=== PATIENT | female | born 1935 | race African-American/Black ===

== ENCOUNTER 2016-07-15 12:02 | Emergency (ER) | payer MEDICARE, BC ==
[~2016-07-15 12:02] MED LIST: ALBU8.5H6 IH; ASPI81TA2 PO; BUSP15TA PO; CETI10TA30 PO; CETI5SOL PO; DIAZ5TAB PO; DICL1TAB50 PO; FAMO-63 PO; FLUT16SP2 NS; LISI40TA PO; LORA0.5P MC; METH500T7 PO; OMEG300C PO; PANT40TA3 PO; PROAIR HFA8.5 GM IH; VENL37.5 PO
[2016-07-15 12:59] VITALS: BP 148/67
--- NOTE | 2016-07-15 13:59 | RAD ---
2 view CXR: Clinical indications: Cough and congestion.. Comparison: January 23, 2016. 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 No acute lung infiltrate or pleural effusion or pulmonary edema or lung mass or pneumothorax is seen. The heart size is at the upper limits of normal in size and is stable. The pulmonary vasculature, mediastinum and both karie are unremarkable. The osseous structures appear intact. Impression: No acute radiographic abnormality is seen.
[2016-07-15] MEDS ORDERED: DOXY100T PO (14:30)
[2016-07-15] MEDS ORDERED: PROAIR RESPICL90 MCG IH (14:30)
[2016-07-15] MEDS ORDERED: BENZ100C PO (14:30)
--- NOTE | 2016-07-15 14:30 | PHYS DOC ---
Past Medical History Past Medical History: Anxiety, Kidney Stone Additional Past Medical Histor: seasonal allergies, ACID REFLUX Past Surgical History: Other Additional Past Surgical Histo: back surgery, Alcohol Use: None Drug Use: None Adult General Chief Complaint Chief Complaint: COUGH HPI HPI Patient is a 81 year old female with history of kidney stones and anxiety presents today with a productive cough and nasal congestion for 2 days. Patient denies any fever. Patient states she would like antibiotics before this cough gets worse. Review of Systems Review of Systems Constitutional: Denies fever or chills [] Eyes: Denies change in visual acuity, redness, or eye pain [] HENT: nasal congestion Respiratory: cough Cardiovascular: No additional information not addressed in HPI [] GI: Denies abdominal pain, nausea, vomiting, bloody stools or diarrhea [] : Denies dysuria or hematuria [] Musculoskeletal: Denies back pain or joint pain [] Integument: Denies rash or skin lesions [] Neurologic: Denies headache, focal weakness or sensory changes [] Endocrine: Denies polyuria or polydipsia [] Allergies Allergies Allergies Coded Allergies Type Severity Reaction Last Updated Verified Sulfa (Sulfonamide Antibiotics) Allergy Severe Rash 01/23/16 Yes promethazine Allergy Severe Vomiting 01/23/16 Yes Penicillins Allergy Intermediate 01/23/16 Yes Physical Exam Physical Exam Constitutional: Well developed, well nourished, no acute distress, non-toxic appearance. [] HENT: Normocephalic, atraumatic, bilateral external ears normal, oropharynx moist, no oral exudates, nose normal. [] Eyes: PERRLA, EOMI, conjunctiva normal, no discharge. [] Neck: Normal range of motion, no tenderness, supple, no stridor. [] Cardiovascular:Heart rate regular rhythm, no murmur [] Lungs & Thorax: Bilateral breath sounds clear to auscultation [] Abdomen: Bowel sounds normal, soft, no tenderness, no masses, no pulsatile masses. [] Skin: Warm, dry, no erythema, no rash. [] Back: No tenderness, no CVA tenderness. [] Extremities: No tenderness, no cyanosis, no clubbing, ROM intact, no edema. [] Neurologic: Alert and oriented X 3, normal motor function, normal sensory function, no focal deficits noted. [] Psychologic: Affect normal, judgement normal, mood normal. [] Current Patient Data Vital Signs Vital Signs Date Time Temp Pulse Resp B/P Pulse Ox O2 Delivery O2 Flow Rate FiO2 07/15/16 12:59 98.1 62 16 99 Room Air 98.1 EKG EKG [] Radiology/Procedures Radiology/Procedures [] Course & Med Decision Making Course & Med Decision Making Pertinent Labs and Imaging studies reviewed. (See chart for details) Patient is in the ED with a productive cough and nasal congestion for 2 days. Chest x-ray interpreted by radiologist is negative for any acute findings. She is 81 years old and is very concerned she could get pneumonia from this cough in a couple days. She was discharged with doxycycline for 7 days, albuterol breathing treatments and Tessalon Perles. Follow-up with her own PCP in the next 7 days. Instructed to return to the ED if symptoms worsen. Dragon Disclaimer Dragon Disclaimer This electronic medical record was generated, in whole or in part, using a voice recognition dictation system. Departure Departure Impression: Primary Impression: Bronchitis, acute Disposition: 01 HOME, SELF-CARE Condition: STABLE Referrals: SHUBHAM MO MD (PCP) Follow-up with your own doctor in one week Patient Instructions: Acute Bronchitis Additional Instructions: You were seen for acute bronchitis and upper respiratory infection. Take the prescribed antibiotics until finished. Use the cough medicines as needed. Follow -up with your own doctor in the next 7 days, come back to the ED if symptoms worsen. Scripts Doxycycline Hyclate 100 Mg Tablet1 Tab PO BID #14 TAB Prov:DAVON TAYLOR APRN 07/15/16 Benzonatate (Tessalon Perle)100 Mg Capsule1 Cap PO TID #30 CAP Prov:DAVON TAYLOR APRN 07/15/16 Albuterol Sulfate (Proair Respiclick)90 Mcg Aer.pow.ba1 Puff IH PRN Q6HRS PRN SHORTNESS OF BREATH #1 INHALER Prov:DAVON TAYLOR APRN 07/15/16 Problem Qualifiers Primary Impression: Bronchitis, acute Bronchitis organism: unspecified organism Qualified Code: J20.9 - Acute bronchitis, unspecified DAVON TAYLOR APRN Jul 15, 2016 14:30
== END 2016-07-15 14:58 | disposition home or self-care (01) ==
LOC: ER 12:02
DX: J20.9 Acute bronchitis, unspecified (principal); F41.9 Anxiety disorder, unspecified; Z88.2 Allergy status to sulfonamides; Z88.0 Allergy status to penicillin; Z88.8 Allergy status to other drugs, medicaments and biological substances
CPT/HCPCS: 71020; 99284

== ENCOUNTER 2016-12-25 12:54 | Emergency (ER) | payer MEDICARE, BC ==
[~2016-12-25] VITALS: Ht 160 cm; Wt 85.3 kg
[~2016-12-25 12:54] MED LIST changes: +ASPI-630 PO; -ASPI81TA2 PO; +BENZ100C PO; +DOXY100T PO; +PROAIR RESPICL90 MCG IH
[2016-12-25 13:00] VITALS: BP 164/67
--- NOTE | 2016-12-25 13:07 | PHYS DOC ---
Past Medical History Past Medical History: Anxiety, Kidney Stone Additional Past Medical Histor: seasonal allergies, ACID REFLUX Past Surgical History: Other Additional Past Surgical Histo: back surgery, Alcohol Use: None Drug Use: None Adult General Chief Complaint Chief Complaint: ANKLE PROBLEM [facility] HPI Patient is a 81 year old female presents to the emergency department c/o pain to the right medial heel that started 2 days ago. Patient states she had irritation to the area and then had sandals that irritated the area. Patient states there is redness noted to site. She has increase pain to the area. Denies numbness, tingling to the area. She does walk with a limp. [] Review of Systems Review of Systems Constitutional: Denies fever or chills [] Eyes: Denies change in visual acuity, redness, or eye pain [] HENT: Denies nasal congestion or sore throat [] Respiratory: Denies cough or shortness of breath [] Cardiovascular: No additional information not addressed in HPI [] GI: Denies abdominal pain, nausea, vomiting, bloody stools or diarrhea [] : Denies dysuria or hematuria [] Musculoskeletal: Denies back pain. C/o right heel/achilles pain and discomfort Integument: Denies rash or skin lesions [] Neurologic: Denies headache, focal weakness or sensory changes [] Endocrine: Denies polyuria or polydipsia [] Allergies Allergies Allergies Coded Allergies Type Severity Reaction Last Updated Verified Sulfa (Sulfonamide Antibiotics) Allergy Severe Rash 01/23/16 Yes promethazine Allergy Severe Vomiting 01/23/16 Yes Penicillins Allergy Intermediate 01/23/16 Yes Physical Exam Physical Exam Constitutional: Well developed, well nourished, no acute distress, non-toxic appearance. [] HENT: Normocephalic, atraumatic, bilateral external ears normal, oropharynx moist, no oral exudates, nose normal. [] Eyes: PERRLA, EOMI, conjunctiva normal, no discharge. [] Neck: Normal range of motion, no tenderness, supple, no stridor. [] Cardiovascular:Heart rate regular rhythm Lungs & Thorax: no respiratory distress noted. Skin: Warm, dry, no erythema, no rash. [] Back: No tenderness Extremities: No tenderness, no cyanosis, no clubbing, ROM intact, no edema. Rowe test negative for the right Neurologic: Alert and oriented X 3, normal motor function, normal sensory function, no focal deficits noted. [] Psychologic: Affect normal, judgement normal, mood normal. [] Current Patient Data Vital Signs Vital Signs Date Time Temp Pulse Resp B/P (MAP) Pulse Ox O2 Delivery O2 Flow Rate FiO2 12/25/16 13:00 98.3 67 14 99 Room Air 98.3 EKG EKG [] Radiology/Procedures Radiology/Procedures [][facility] [address] [place] [address] IMAGING REPORT Signed PATIENT: MEGAN LUKE ACCOUNT: [id number] : 1935 LOCATION: ER AGE: 81 SEX: F EXAM STATUS: REG ER ORD. PHYSICIAN: RACHELE NELSON APRN REASON: pain and redness to the medial ankle/achilles area PROCEDURE: ANKLE RIGHT 3V Three-view right ankle radiographs 12/25/2016 Clinical history: Right ankle pain and redness. AP, lateral and oblique digital radiographs of the right ankle were obtained. The right ankle mortise is intact. No fracture or dislocation of the right ankle is seen. Mild degenerative changes are seen involving the right ankle. Mild enthesophyte formation is seen involving the posterior right calcaneus. Impression: Mild degenerative changes are seen involving the right ankle. No acute osseous abnormality is seen. DICTATED and SIGNED BY: JEVON BOLDEN MD DATE: 12/25/16 1336 CC: RACHELE NELSON APRN; SHUBHAM MO MD ~ Course & Med Decision Making Course & Med Decision Making Pertinent Labs and Imaging studies reviewed. (See chart for details) X-ray was negative for any bony abnormalities. Patient will be placed in an Bryan wrap. Recommended to followup with orthopedic in 1 week. Wear the bryan wrap for the next 7-10 days. Elevation as much as possible. Tylenol or Ibuprofen for pain and discomfort. Signs and symptoms to return to the emergency department have been provided. Patient agrees with discharge instructions, treatment regimen and followup recommendation. [] Dragon Disclaimer Dragon Disclaimer This electronic medical record was generated, in whole or in part, using a voice recognition dictation system. Departure Departure Impression: Primary Impression: Pain of right heel Disposition: 01 HOME, SELF-CARE Condition: STABLE Referrals: SHUBHAM MO MD (PCP) SAURAV SANTOS MD Patient Instructions: Ankle Pain Additional Instructions: Activity as tolerated. Tylenol or ibuprofen and discomfort. Wear the Bryan wrap for the next 7-10 days. Elevation as much as possible. Follow-up with orthopedic in the next week. Return back to emergency department sign symptoms of become worse. RACHELE NELSON APRN Dec 25, 2016 13:07
--- NOTE | 2016-12-25 13:40 | RAD ---
Three-view right ankle radiographs 12/25/2016 Clinical history: Right ankle pain and redness. AP, lateral and oblique digital radiographs of the right ankle were obtained. The right ankle mortise is intact. No fracture or dislocation of the right ankle is seen. Mild degenerative changes are seen involving the right ankle. Mild enthesophyte formation is seen involving the posterior right calcaneus. Impression: Mild degenerative changes are seen involving the right ankle. No acute osseous abnormality is seen.
== END 2016-12-25 14:20 | disposition home or self-care (01) ==
LOC: ER 12:54
DX: M25.571 Pain in right ankle and joints of right foot (principal); F41.9 Anxiety disorder, unspecified; K21.9 Gastro-esophageal reflux disease without esophagitis; Z87.442 Personal history of urinary calculi; Z88.2 Allergy status to sulfonamides; Z88.0 Allergy status to penicillin; Z88.8 Allergy status to other drugs, medicaments and biological substances
CPT/HCPCS: 73610; 99284

== ENCOUNTER 2017-01-06 12:12 | Observation (INO) | payer MEDICARE, BC ==
[~2017-01-06] VITALS: Ht 160 cm; Wt 81.3 kg
[~2017-01-06 12:12] MED LIST changes: +AMLO10TA4 PO; +METO25TA4 PO; +TICA90TA PO
[2017-01-06] MEDS ORDERED: NITROGLYCERIN SUBLINGUAL 0.4 MG BOTTLE OF 25. SL ONE (12:32)
[2017-01-06] MEDS ORDERED: ASPIRIN CHEWABLE 81 MG TABLET. PO ONE (12:45)
[2017-01-06] MEDS ORDERED: NITROGLYCERIN SUBLINGUAL 0.4 MG BOTTLE OF 25. SL PRN (12:45)
[2017-01-06] MEDS ORDERED: TICAGRELOR 90 MG TABLET. PO ONE (12:45)
[2017-01-06 13:13] LABS: BASO % 1 % (0-3); EOS % 1 % (0-3); HEMATOCRIT 35.7 % (36.0-47.0); HEMOGLOBIN 11.5 g/dL (12.0-15.5); LYMPH # 1.8 x10^3/uL (1.0-4.8); LYMPH % 30 % (24-48); MEAN CORPUSCULAR HEMOGLOBIN 29 pg (25-35); MEAN CORPUSCULAR HGB CONC 32 g/dL (31-37); MEAN CORPUSCULAR VOLUME 90 fL (79-100); MONO % 9 % (0-9); NEUT % 58 % (31-73); PLATELET COUNT 248 x10^3/uL (140-400); RED BLOOD COUNT 3.98 x10^6/uL (3.50-5.40); WHITE BLOOD COUNT 5.8 x10^3/uL (4.0-11.0)
[2017-01-06 13:14] LABS: CALCIUM 9.1 mg/dL (8.5-10.1); GFR 64.7
[2017-01-06 13:18] LABS: ALBUMIN 3.1 g/dL (3.4-5.0); ALBUMIN/GLOBULIN RATIO 0.7 (1.0-1.7); TOTAL BILIRUBIN 0.3 mg/dL (0.2-1.0); TOTAL PROTEIN 7.4 g/dL (6.4-8.2)
--- NOTE | 2017-01-06 13:41 | RAD ---
Indication: Chest pain. Time of exam 12:42 PM Correlation is made with prior chest from 01/02/2017. FINDINGS: The heart size is normal. The lungs are clear. No pleural effusion or pneumothorax is identified. The pulmonary vascularity is normal. IMPRESSION: No acute abnormality detected.
--- NOTE | 2017-01-06 14:27 | ACF ---
Admit Criteria Forms Admit Criteria Forms Admit Criteria Forms CHEST PAIN Clinical Indications for Admission to Inpatient Care (Place 'X' for any and all applicable criteria): Admission is indicated for chest pain and ANY ONE of the following(1)(2)(3)(4)(5 ): [ ]I. Angina with acute coronary syndrome (Also use Myocardial Infarction or Angina guideline) [ ]II. Hemodynamic instability [ ]III. Angina needing acute intervention as indicated by ALL of the following( 11)(12): [ ]a) Unstable angina is present as indicated by angina that is ANY ONE of the following: [ ]i) New onset [ ]ii) Nocturnal [ ]iii) Prolonged at rest [ ]iv) Progressive [ ]b) Angina warrants acute intervention as indicated by ANY ONE of the following: [ ]i) Recurrent angina (e.g, not responding as previously to treatment) [ ]ii) Angina at rest or with low-level activities despite initial medical therapy [ ]iii) New or presumably new ST-segment depression on ECG [ ]iv) Signs or symptoms of heart failure (eg, dyspnea, pulmonary edema) [ ]v) New or worsening mitral regurgitation [ ]vi) Hemodynamic instability [ ]vii) Dangerous arrhythmia (eg, sustained ventricular tachycardia) [ ]viii) History of percutaneous coronary intervention within 6 months [ ]ix) History of coronary artery bypass graft surgery [ ]x) MARBELLA risk score of 2 or greater[A] [ ]xi) History of Diabetes(14) [ ]xii) High-risk cardiac ischemia findings on noninvasive testing (e.g, echocardiogram, treadmill testing, nuclear scan) [ ]xiii) Chronic renal insufficiency (ie, estimated GFR less than 60 mL/min/1.732m) [ ]xiv) Left ventricular ejection fraction less than 40% [X]IV. Evidence of UT (eg, cardiac biomarkers positive, ST-segment elevation on ECG) also use Myocardial Infarction Criteria Form. [ ]V. Pulmonary edema [ ]. Respiratory distress [ ]VII. Chest pain indicative of serious diagnosis other than coronary artery disease (eg, aortic dissection) [ ]VIII. Contraindications and/or Inappropriate clinical situations for Observational Care in patients with Chest Pain, when ANY ONE of the following is required: [ ]a) Patient with risk factor for pulmonary embolism, acute coronary syndrome and myocardial infarction (18) [ ]b) Patient with Pulmonary embolism require an average LOS of 4.3 days, therefore emergency department observation management is inappropriate 18,23 [ ]c) Painful condition/s in the elderly, have the highest rate of recidivism after emergency department observation management (10.8%) 20,21,22 [ ]d) Elevated cardiac biomarker requires intensive and exhaustive care (19) [ X]IX. General contraindications and/or Inappropriate clinical situations for Observational Care in patients with Chest Pain, when ANY ONE of the following is required: [ X]a) Prediction of prolongation of LOS based on ANY ONE of the following may be considered as a contraindication for observational care 2, 3, 4, 5, 6, 7, 8, 9, 10, 11 [ X]i) Age > 65 yrs. [ ]ii) Patient arriving by ambulance [ ]iii) Patient with high acuity [ ]iv) Patient requiring vital sign monitoring [ ]v) Patient on IV medication [ ]b) Systolic blood pressures 180mmHg 3,12 [ ]c) Patient with altered mental status including delirium and other alteration of consciousness, (3) [ ]d) Patient whose discharge disposition will be to a assisted home or rehabilitation home should not be managed in Emergency Department Observation Unit. CMS rule requires 3 days hospital stay before such placement. 3,13 [ ]e) Patient with failure to thrive due to broad array of etiologies 3,16,17 [ ]f) Inability to ambulate 3,14 Extended stay beyond goal length of stay may be needed for (1)(28): [ ]a) Specific condition diagnosed after evaluation (eg, pulmonary embolism, aortic dissection) [ ]b) Unstable angina [ ]c) Continued suspicion of acute coronary syndrome with inability to complete needed cardiac evaluation (eg, patient clinically unable to undergo stress testing) [ ]d) Myocardial infarction (Contents from ANGINA and CHEST PAIN clinical indications for admission to inpatient care have been integrated in this form) The original [employer] content created by [employer] has been revised. The portions of the content which have been revised are identified through the use of italic text or in bold, and [facility] [employer] has neither reviewed nor approved the modified material. All other unmodified content is copyright [employer]. Please see references footnoted in the original [facility] [employer] edition 2016 DYLAN HENDRICKS Jan 06, 2017 14:27
[2017-01-06] MEDS ORDERED: ONDANSETRON PF 4 MG/2 ML VIAL. IV PRN ×2 (14:45)
[2017-01-06] MEDS ORDERED: SUCR1TAB PO (14:50)
[2017-01-06] MEDS ORDERED: MULT1TAB52 PO (14:50)
[2017-01-06] MEDS ORDERED: GLUC1CAP18 PO (14:50)
[2017-01-06] MEDS ORDERED: CLOP75TA PO (14:51)
[2017-01-06] MEDS ORDERED: DOXYCYCLINE HYCLATE 100 MG TABLET PO SCH (15:00)
[2017-01-06] MEDS ORDERED: FAMOTIDINE 20 MG/2 ML VIAL IVP SCH (15:00)
--- NOTE | 2017-01-06 15:14 | PDOC1 ---
History and Physical Date of Admission Date of Admission DATE: 01/06/17 TIME: 15:10 Identification/Chief Complaint Chief Complaint chest pain Problems: Source Source: Chart review, Patient History of Present Illness History of Present Illness chest pain, recurrent pain, worse last night, pain 7./10 with pressure to left chest that is now improved pt recently DC here 2 days ago, s/p stent placed to LAD, DC on plavix, compliant with meds yesterday she did go to work out this AM, some pain with exertion, no pain currently trop min elevated 0.2 Past Medical History Cardiovascular: Hyperlipidemia Pulmonary: No pertinent hx CENTRAL NERVOUS SYSTEM: Other GI: GERD Heme/Onc: No pertinent hx Hepatobiliary: No pertinent hx Psych: Anxiety Musculoskeletal: Osteoarthritis Rheumatologic: No pertinent hx, Fibromyalgia Infectious disease: No pertinent hx Renal/: No pertinent hx Endocrine: No pertinent hx Past Surgical History Past Surgical History: Other Family History Family History: Coronary Artery Disease, Diabetes, Heart Disease Social History Smoke: No ALCOHOL: none Drugs: None Current Problem List Problem List Problems Medical Problems: (1) Elevated troponin Status: Acute Problems: Current Medications Current Medications Current Medications Nitroglycerin (Nitrostat) 0.4 mg STK-MED ONCE SL ; Start 01/06/17 at 12:32; Stop 01/06/17 at 12:33; Status DC Aspirin (Children'S Aspirin) 162 mg 1X ONCE PO Last administered on 01/06/17 12:37; Start 01/06/17 at 12:45; Stop 01/06/17 at 12:46; Status DC Nitroglycerin (Nitrostat) 0.4 mg PRN Q5MIN PRN SL CHEST PAIN Last administered on 01/06/17 12:46; Start 01/06/17 at 12:45 Ticagrelor (Brilinta) 90 mg 1X ONCE PO ; Start 01/06/17 at 12:45; Stop at 12:45; Status DC Ondansetron HCl (Zofran) 4 mg PRN Q8HRS PRN IV NAUSEA/VOMITING; Start 01/06/17 at 14:45; Stop 01/07/17 at 14:44 Dextrose/Sodium Chloride 1,000 ml @ 100 mls/hr 1X ONCE IV ; Start 01/06/17 at 14:45; Stop 01/07/17 at 00:44 Famotidine (Pepcid) 20 mg BID92 IVP ; Start 01/06/17 at 15:00 Ondansetron HCl (Zofran) 4 mg PRN Q8HRS PRN IV NAUSEA/VOMITING; Start 01/06/17 at 14:45; Stop 01/07/17 at 14:44 Active Scripts Active Metoprolol Tartrate 25 Mg Tablet 0.5 Tab PO BID Brilinta (Ticagrelor) 90 Mg Tablet 90 Mg PO BID 60 Days Norvasc (Amlodipine Besylate) 10 Mg Tablet 10 Mg PO DAILY 30 Days Doxycycline Hyclate 100 Mg Tablet 1 Tab PO BID Tessalon Perle (Benzonatate) 100 Mg Capsule 1 Cap PO TID Proair Respiclick (Albuterol Sulfate) 90 Mcg Aer.pow.ba 1 Puff IH PRN Q6HRS PRN Valium (Diazepam) 5 Mg Tablet 5 Mg PO Q8HRS PRN Pepcid (Famotidine) 20 Mg Tablet 20 Mg PO BID Protonix (Pantoprazole Sodium) 40 Mg Tablet.dr 1 Tab PO DAILY Reported Clopidogrel (Clopidogrel Bisulfate) 75 Mg Tablet 75 Mg PO DAILY Sucralfate 1 Gm Tablet 1 Gm PO Multivitamins (Multivitamin) 1 Each Tablet 1 Each PO Glucosamine Chondroitin Cap (Gluc Hcl/Csa/Cassia Hy/Hyalur Ac) 1 Each Capsule 1 Each PO Effexor Xr (Venlafaxine Hcl) 37.5 Mg Cap.er.24h 37.5 Mg PO DAILY Aspirin 81 Mg Tab.chew 81 Mg PO Fish Oil (Aiea-3 Fatty Acids) 300 Mg Capsule 300 Mg PO Allergies Allergies: Coded Allergies: Sulfa (Sulfonamide Antibiotics) (Verified Allergy, Severe, Rash, 01/23/16) promethazine (Verified Allergy, Severe, Vomiting, 01/23/16) Penicillins (Verified Allergy, Intermediate, 01/23/16) ROS General: No: Chills, Night Sweats, Fatigue, Malaise, Appetite, Other PSYCHOLOGICAL ROS: No: Anxiety, Behavioral Disorder, Concentration difficultie , Decreased libido, Depression, Disorientation, Hallucinations, Hostility, Irritablity, Memory difficulties, Mood Swings, Obsessive thoughts, Physical abuse, Sexual abuse, Sleep disturbances, Suicidal ideation, Other Eyes: No Blurry vision, No Decreased vision, No Double vision, No Dry eyes, No Excessive tearing, No Eye Pain, No Itchy Eyes, No Loss of vision, No Photophobia , No Scotomata, No Uses contacts, No Uses glasses, No Other HEENT: No: Heacaches, Visual Changes, Hearing change, Nasal congestion, Nasal discharge, Oral lesions, Sinus pain, Sore Throat, Epistaxis, Sneezing, Snoring, Tinnitus, Vertigo, Vocal changes, Other ENDOCRINE: No: Breast Changes, Galactorrhea, Hair Pattern Changes, Hot Flashes , Malaise/lethargy, Mood Swings, Palpitations, Polydipsia/polyuria, Skin Changes , Temperature Intolerance, Unexpected Weight Changes, Other Respiratory: No: Cough, Hemoptysis, Orthopnea, Pleuritic Pain, Shortness of breath, SOB with excertion, Sputum Changes, Stridor, Tachypnea, Wheezing, Other Cardiovascular: yes Chest Pain, No Palpitations, No Orthopnea, No Paroxysmal Noc. Dyspnea, No Edema, No Lt Headedness, No Other Gastrointestinal: No Nausea, No Vomiting, No Abdominal Pain, No Diarrhea, No Constipation, No Melena, No Hematochezia, No Other Genitourinary: No Dysuria, No Frequency, No Incontinence, No Hematuria, No Retention, No Discharge, No Urgency, No Pain, No Flank Pain, No Other, No , No , No , No , No , No , No Musculoskeletal: Yes Joint Stiffness, No Gait Disturbance, No Joint Pain, No Joint Swelling, No Muscle Pain, No Muscular Weakness, No Pain In:, No Swelling In:, No Other Neurological: No Behavorial Changes, No Bowel/Bladder ControlChng, No Confusion , No Dizziness, No Gait Disturbance, No Headaches, No Impaired Coord/balance, No Memory Loss, No Numbness/Tingling, No Seizures, No Speech Problems, No Tremors, No Visual Changes, No Weakness, No Other Skin: Yes Dry Skin, No Eczema, No Hair Changes, No Lumps, No Mole Changes, No Mottling, No Nail Changes, No Pruritus, No Rash, No Skin Lesion Changes, No Other, No Acne Physical Exam General: Alert, Oriented X3, Cooperative, No acute distress HEENT: Atraumatic, PERRLA, EOMI, Mucous membr. moist/pink Lungs: Normal air movement Abdomen: No tenderness Extremities: No edema Skin: No significant lesion Neuro: Normal tone, Cranial nerves 3-12 NL Psych/Mental Status: Mood NL Vitals Vitals Vital Signs Date Time Temp Pulse Resp B/P (MAP) Pulse Ox O2 Delivery O2 Flow Rate FiO2 01/06/17 12:46 62 142/67 01/06/17 12:32 98.7 20 97 Room Air 98.7 Labs Labs Laboratory Tests Test 01/06/17 12:47 White Blood Count 5.8 x10^3/uL (4.0-11.0) Red Blood Count 3.98 x10^6/uL (3.50-5.40) Hemoglobin 11.5 g/dL (12.0-15.5) Hematocrit 35.7 % (36.0-47.0) Mean Corpuscular Volume 90 fL (79-100) Mean Corpuscular Hemoglobin 29 pg (25-35) Mean Corpuscular Hemoglobin Concent 32 g/dL (31-37) Red Cell Distribution Width 15.0 % (11.5-14.5) Platelet Count 248 x10^3/uL (140-400) Neutrophils (%) (Auto) 58 % (31-73) Lymphocytes (%) (Auto) 30 % (24-48) Monocytes (%) (Auto) 9 % (0-9) Eosinophils (%) (Auto) 1 % (0-3) Basophils (%) (Auto) 1 % (0-3) Neutrophils # (Auto) 3.4 x10^3uL (1.8-7.7) Lymphocytes # (Auto) 1.8 x10^3/uL (1.0-4.8) Monocytes # (Auto) 0.5 x10^3/uL (0.0-1.1) Eosinophils # (Auto) 0.1 x10^3/uL (0.0-0.7) Basophils # (Auto) 0.0 x10^3/uL (0.0-0.2) Sodium Level 143 mmol/L (136-145) Potassium Level 4.0 mmol/L (3.5-5.1) Chloride Level 107 mmol/L (98-107) Carbon Dioxide Level 29 mmol/L (21-32) Anion Gap 7 (6-14) Blood Urea Nitrogen 11 mg/dL (7-20) Creatinine 1.0 mg/dL (0.6-1.0) Estimated GFR (Cockcroft-Gault) 64.7 BUN/Creatinine Ratio 11 (6-20) Glucose Level 122 mg/dL (70-99) Calcium Level 9.1 mg/dL (8.5-10.1) Total Bilirubin 0.3 mg/dL (0.2-1.0) Aspartate Amino Transf (AST/SGOT) 26 U/L (15-37) Alanine Aminotransferase (ALT/SGPT) 19 U/L (14-59) Alkaline Phosphatase 74 U/L (46-116) Troponin I Quantitative 0.267 ng/mL (0.000-0.055) Total Protein 7.4 g/dL (6.4-8.2) Albumin 3.1 g/dL (3.4-5.0) Albumin/Globulin Ratio 0.7 (1.0-1.7) Laboratory Tests Test 01/06/17 12:47 White Blood Count 5.8 x10^3/uL (4.0-11.0) Red Blood Count 3.98 x10^6/uL (3.50-5.40) Hemoglobin 11.5 g/dL (12.0-15.5) Hematocrit 35.7 % (36.0-47.0) Mean Corpuscular Volume 90 fL (79-100) Mean Corpuscular Hemoglobin 29 pg (25-35) Mean Corpuscular Hemoglobin Concent 32 g/dL (31-37) Red Cell Distribution Width 15.0 % (11.5-14.5) Platelet Count 248 x10^3/uL (140-400) Neutrophils (%) (Auto) 58 % (31-73) Lymphocytes (%) (Auto) 30 % (24-48) Monocytes (%) (Auto) 9 % (0-9) Eosinophils (%) (Auto) 1 % (0-3) Basophils (%) (Auto) 1 % (0-3) Neutrophils # (Auto) 3.4 x10^3uL (1.8-7.7) Lymphocytes # (Auto) 1.8 x10^3/uL (1.0-4.8) Monocytes # (Auto) 0.5 x10^3/uL (0.0-1.1) Eosinophils # (Auto) 0.1 x10^3/uL (0.0-0.7) Basophils # (Auto) 0.0 x10^3/uL (0.0-0.2) Sodium Level 143 mmol/L (136-145) Potassium Level 4.0 mmol/L (3.5-5.1) Chloride Level 107 mmol/L (98-107) Carbon Dioxide Level 29 mmol/L (21-32) Anion Gap 7 (6-14) Blood Urea Nitrogen 11 mg/dL (7-20) Creatinine 1.0 mg/dL (0.6-1.0) Estimated GFR (Cockcroft-Gault) 64.7 BUN/Creatinine Ratio 11 (6-20) Glucose Level 122 mg/dL (70-99) Calcium Level 9.1 mg/dL (8.5-10.1) Total Bilirubin 0.3 mg/dL (0.2-1.0) Aspartate Amino Transf (AST/SGOT) 26 U/L (15-37) Alanine Aminotransferase (ALT/SGPT) 19 U/L (14-59) Alkaline Phosphatase 74 U/L (46-116) Troponin I Quantitative 0.267 ng/mL (0.000-0.055) Total Protein 7.4 g/dL (6.4-8.2) Albumin 3.1 g/dL (3.4-5.0) Albumin/Globulin Ratio 0.7 (1.0-1.7) VTE Prophylaxis Ordered VTE Prophylaxis Devices: Yes VTE Pharmacological Prophylaxi: Yes Assessment/Plan Assessment/Plan chest pain, angina known CAD, htn, lipids recent stent to LAD compliant with anti-plt admit obs, trend troponin CV consult HALEIGH JUNIOR MD Jan 06, 2017 15:14
[2017-01-06] MEDS ORDERED: diazePAM 5 MG TABLET PO PRN (15:15)
[2017-01-06] MEDS ORDERED: NON FORMULARY ITEM (Albuterol Sulfate (Proair Respiclick) 1 PUFF) IH PRN (15:15)
[2017-01-06] MEDS ORDERED: ALBUTEROL SULFATE 2.5 MG/3 ML NEBU. NEB PRN (15:30)
--- NOTE | 2017-01-06 15:33 | PDOC ---
GAY [employer] 01/06/17 1533: CARDIO Progress Notes Date and Time Date of Service 01/06/17 Time of Evaluation 1405 Subjective Subjective: No shortness of breath, No Palpitations, No Dizziness, Other ( faint chest discomfort) Vitals Vitals Vital Signs Date Time Temp Pulse Resp B/P (MAP) Pulse Ox O2 Delivery O2 Flow Rate FiO2 01/06/17 12:46 62 142/67 01/06/17 12:32 98.7 20 97 Room Air 98.7 Weight Weight [ ] Laboratory Labs Laboratory Tests Test 01/06/17 12:47 White Blood Count 5.8 x10^3/uL (4.0-11.0) Red Blood Count 3.98 x10^6/uL (3.50-5.40) Hemoglobin 11.5 g/dL (12.0-15.5) Hematocrit 35.7 % (36.0-47.0) Mean Corpuscular Volume 90 fL (79-100) Mean Corpuscular Hemoglobin 29 pg (25-35) Mean Corpuscular Hemoglobin Concent 32 g/dL (31-37) Red Cell Distribution Width 15.0 % (11.5-14.5) Platelet Count 248 x10^3/uL (140-400) Neutrophils (%) (Auto) 58 % (31-73) Lymphocytes (%) (Auto) 30 % (24-48) Monocytes (%) (Auto) 9 % (0-9) Eosinophils (%) (Auto) 1 % (0-3) Basophils (%) (Auto) 1 % (0-3) Neutrophils # (Auto) 3.4 x10^3uL (1.8-7.7) Lymphocytes # (Auto) 1.8 x10^3/uL (1.0-4.8) Monocytes # (Auto) 0.5 x10^3/uL (0.0-1.1) Eosinophils # (Auto) 0.1 x10^3/uL (0.0-0.7) Basophils # (Auto) 0.0 x10^3/uL (0.0-0.2) Sodium Level 143 mmol/L (136-145) Potassium Level 4.0 mmol/L (3.5-5.1) Chloride Level 107 mmol/L (98-107) Carbon Dioxide Level 29 mmol/L (21-32) Anion Gap 7 (6-14) Blood Urea Nitrogen 11 mg/dL (7-20) Creatinine 1.0 mg/dL (0.6-1.0) Estimated GFR (Cockcroft-Gault) 64.7 BUN/Creatinine Ratio 11 (6-20) Glucose Level 122 mg/dL (70-99) Calcium Level 9.1 mg/dL (8.5-10.1) Total Bilirubin 0.3 mg/dL (0.2-1.0) Aspartate Amino Transf (AST/SGOT) 26 U/L (15-37) Alanine Aminotransferase (ALT/SGPT) 19 U/L (14-59) Alkaline Phosphatase 74 U/L (46-116) Troponin I Quantitative 0.267 ng/mL (0.000-0.055) Total Protein 7.4 g/dL (6.4-8.2) Albumin 3.1 g/dL (3.4-5.0) Albumin/Globulin Ratio 0.7 (1.0-1.7) Physical Exam HEENT: Neck Supple W Full Motion Chest: Symmetric LUNGS: Clear to Auscultation Heart: S1S2, RRR, murmurs (2/6 systolic murmur ) Abdomen: Soft N/T Extremities: 2+ Dorsalis Pedis, No Edema Neurology: alert, oriented, follow commands Assessment Assessment This is a very pleasant 81 yo female known to us from hospital last week for NSTEMI. 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 Underwent PCI/ELVIRA to LAD with plan for medical management of the RCA and OM disease, with consideration of PCI if symptoms not resolved. Started on DAPT with ASA and ticagrelor as an inpatient. Patient unable to have ticagrelor filled due to expense; was switched to Plavix, which she was able to get filled. No missed doses of DAPT since PCI. Also followed by the GI service during hospitalization. Pain thought to have GERD component. PPI and Carafate resumed. Patient reports feeling well yesterday. Went to bed last night and woke up in the middle of the night with chest pain/palpitations. Describes as " firecrackers going off in her chest." Causes a "hot" sensation in her chest that makes her "nervous." Denies any dizziness, diaphoresis, or SOA. No exacerbating or relieving factors. Was contacted by our office staff for follow up and to set up event monitor. Expressed concern of symptoms. Was referred to the ED for further evaluation. Trop noted at 0.267. Patient presently reporting an improvement in symptoms although still faintly present. Assessment 1. Chest pain, atypical 2. NSTEMI; troponin likely trending down post cath (01/03/17) 3. 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 HTN 5. Dyslipidemia 6. Tachy-aarti 7. GERD Recommendations Trend enzymes; check CK Resume DAPT/secondary prevention. Add statin therapy Pain atypical and possibly related to GERD as onset seemed positional related, along with burning sensation in her chest. If persistent could consider further PCI to address additional coronary disease. Plan for outpatient event monitor upon discharge as previously scheduled. HAMZAH AGGARWAL MD 01/06/172055: CARDIO Progress Notes Plan Plan Pt. seen and examined. Please see notes from recent admission for full details. 81 y.o presenting with non-cardiac chest pain. Has clear acid reflux symptoms. Trop downtrending. CK and MB not consistent with [place]. She is a recent . Has been under a lot of stress. Supportive care for now. Continue ASA, Plavix. She does have significant PAC's and short bursts of PAT. May need to increase Metoprolol. If not controlled, may ultimately need pacer but will eval with outpt event monitor. Thanks for allowing us to participate in her care. GAY WILLIS APRN Jan 06, 2017 15:33 HAMZAH AGGARWAL MD Jan 06, 2017 20:56
[2017-01-06 15:51] VITALS: BP 131/66
--- NOTE | 2017-01-06 15:57 | PDOC ---
Subjective: Subjective: GI consult 01/03 for chest pain, h/o GERD. Had cath, 1 stent placed, discharged 01/04. Continued ASA and PPI at home, did not get Brilinta. Still bothered w/ chest pain at night, same description: "heat," "smoke rising, " radiates to arms. No n/v, abd pain, bleeding, diarrhea, constipation, dysphagia. Comfortable currently. Objective: Vital Signs: Vital Signs Date Time Temp Pulse Resp B/P (MAP) Pulse Ox O2 Delivery O2 Flow Rate FiO2 01/06/17 15:51 98.1 62 16 131/66 (87) 99 Room Air 98.1 Labs: Laboratory Tests Test 01/06/17 12:47 White Blood Count 5.8 x10^3/uL Red Blood Count 3.98 x10^6/uL Hemoglobin 11.5 g/dL Hematocrit 35.7 % Mean Corpuscular Volume 90 fL Mean Corpuscular Hemoglobin 29 pg Mean Corpuscular Hemoglobin Concent 32 g/dL Red Cell Distribution Width 15.0 % Platelet Count 248 x10^3/uL Neutrophils (%) (Auto) 58 % Lymphocytes (%) (Auto) 30 % Monocytes (%) (Auto) 9 % Eosinophils (%) (Auto) 1 % Basophils (%) (Auto) 1 % Neutrophils # (Auto) 3.4 x10^3uL Lymphocytes # (Auto) 1.8 x10^3/uL Monocytes # (Auto) 0.5 x10^3/uL Eosinophils # (Auto) 0.1 x10^3/uL Basophils # (Auto) 0.0 x10^3/uL Sodium Level 143 mmol/L Potassium Level 4.0 mmol/L Chloride Level 107 mmol/L Carbon Dioxide Level 29 mmol/L Anion Gap 7 Blood Urea Nitrogen 11 mg/dL Creatinine 1.0 mg/dL Estimated GFR (Cockcroft-Gault) 64.7 BUN/Creatinine Ratio 11 Glucose Level 122 mg/dL Calcium Level 9.1 mg/dL Total Bilirubin 0.3 mg/dL Aspartate Amino Transf (AST/SGOT) 26 U/L Alanine Aminotransferase (ALT/SGPT) 19 U/L Alkaline Phosphatase 74 U/L Troponin I Quantitative 0.267 ng/mL Total Protein 7.4 g/dL Albumin 3.1 g/dL Albumin/Globulin Ratio 0.7 Imaging: CXR IMPRESSION: No acute abnormality detected. PE: GEN: NAD HEENT: Atraumatic, PERRL LUNGS: CTAB HEART: RRR ABD: NABS, S/ND/NT EXTREMITY: No edema SKIN: No rashes, no jaundice NEURO/PSYCH: A & O 3 A/P: Chest pain, CAD, elevated troponin -burning, radiation to arms, occurs mostly during the night -heart cath last week w/ triple vessel disease s/p 1 stent, continued ASA but unable to start Brilinta 2/2 cost GERD -noted on EGD 01/2016 recently re-started PPI -- Continue per cardiology. Continue PPI. ALISE QUIROZ Jan 06, 2017 15:57
--- NOTE | 2017-01-06 16:03 | EKG ---
[facility] [address] [place] [address] Test Date: 2017-01-06 Test Time: 12:23:06 Pat Name: MEGAN LUKE Department: Room: [facility] Gender: F Securities Trader: : 1935 Requested By: BASILIA HERNANDEZ Order Number: [id number] Reading MD: Molly Green Measurements Intervals Blanding Rate: 64 P: 56 NC: 132 QRS: 20 QRSD: 86 T: 16 QT: 380 QTc: 396 Interpretive Statements SINUS RHYTHM NORMAL ECG Electronically Signed On 01-06-2017 21:05:13 CDT by Molly Green
[2017-01-06] MEDS: ASPIRIN CHEWABLE 81 MG TABLET. PO SCH (16:04)
[2017-01-06] MEDS: amLODIPine BESYLATE 10 MG TABLET PO SCH (16:04)
[2017-01-06] MEDS: CLOPIDOGREL BISULFATE 75 MG TABLET PO SCH (16:04)
[2017-01-06] MEDS: BENZONATATE 100 MG CAPSULE. PO SCH ×2 (16:04→20:24)
[2017-01-06] MEDS: SUCRALFATE 1 GM TABLET. PO SCH (16:04)
[2017-01-06] MEDS: IV DEXTROSE 5 %-0.45 % NACL 1,000 ML IV ONE ×2 (16:06→18:40)
[2017-01-06 16:43] LABS: CKMB MASS 1.4 ng/mL (0.0-3.6)
[2017-01-06] MEDS: FAMOTIDINE 20 MG TABLET. PO SCH (18:13)
[2017-01-06] MEDS ORDERED: ZOLPIDEM 5 MG TABLET. PO PRN (18:30)
--- NOTE | 2017-01-06 18:33 | ED.ADGEN ---
Past Medical History Past Medical History: Anxiety, CAD, GERD, Kidney Stone Additional Past Medical Histor: seasonal allergies, ACID REFLUX Past Surgical History: Other Additional Past Surgical Histo: back surgery, cardiac stent placed Alcohol Use: None Drug Use: None Adult General Chief Complaint Chief Complaint: CHEST PAIN HPI HPI Patient is a 81 year old female presents presents with intermittent left-sided chest pain rating to left shoulder. Symptoms occurred last occurred this morning. She currently denies chest pain shortness breath nausea or sweats. Patient was in the hospital last week and had stent placed in her LAD. She is compliant with Plavix which was prescribed. Denies cough, leg pain swelling or history of DVT or PE. No other acute symptoms or complaints. Patient contacted her hat lacer's office and instructed to come to the emergency department. Review of Systems Review of Systems Review symptoms as per history of present illness. All other review of negative. Current Medications Current Medications Current Medications Medications (Trade) Dose Ordered Sig/Chay Start Time Stop Time Status Last Admin Dose Admin Aspirin (Children'S Aspirin) 162 mg 1X ONCE 01/06/17 12:45 01/06/17 12:46 DC 01/06/17 12:37 162 MG Nitroglycerin (Nitrostat) 0.4 mg PRN Q5MIN PRN 01/06/17 12:45 01/06/17 12:46 0.4 MG Ticagrelor (Brilinta) 90 mg 1X ONCE 01/06/17 12:45 01/06/17 12:45 DC Allergies Allergies Allergies Coded Allergies Type Severity Reaction Last Updated Verified Sulfa (Sulfonamide Antibiotics) Allergy Severe Rash 01/23/16 Yes promethazine Allergy Severe Vomiting 01/23/16 Yes Penicillins Allergy Intermediate 01/23/16 Yes Physical Exam Physical Exam Constitutional: Well developed, well nourished, no acute distress, non-toxic appearance. HENT: Normocephalic, atraumatic, bilateral external ears normal, oropharynx moist, no oral exudates, nose normal. Eyes: PERRLA, EOMI, conjunctiva normal, no discharge. Neck: Normal range of motion, no tenderness, supple, no stridor. Cardiovascular:Heart rate regular rhythm, no murmur. Lungs & Thorax: Bilateral breath sounds clear to auscultation. Abdomen: Bowel sounds normal, soft, no tenderness. Skin: Warm, dry, no erythema. Back: No tenderness. Extremities: No tenderness, no cyanosis, no clubbing, ROM intact, no edema. Neurologic: Alert and oriented X 3, normal motor function, normal sensory function, no focal deficits noted. Psychologic: Affect normal, judgement normal, mood normal. Current Patient Data Vital Signs Vital Signs Date Time Temp Pulse Resp B/P (MAP) Pulse Ox O2 Delivery O2 Flow Rate FiO2 01/06/17 13:55 58 21 127/59 (81) 99 Room Air 01/06/17 12:32 98.7 98.7 Lab Values Laboratory Tests Test 01/06/17 12:47 White Blood Count 5.8 x10^3/uL (4.0-11.0) Red Blood Count 3.98 x10^6/uL (3.50-5.40) Hemoglobin 11.5 g/dL (12.0-15.5) L Hematocrit 35.7 % (36.0-47.0) L Mean Corpuscular Volume 90 fL (79-100) Mean Corpuscular Hemoglobin 29 pg (25-35) Mean Corpuscular Hemoglobin Concent 32 g/dL (31-37) Red Cell Distribution Width 15.0 % (11.5-14.5) H Platelet Count 248 x10^3/uL (140-400) Neutrophils (%) (Auto) 58 % (31-73) Lymphocytes (%) (Auto) 30 % (24-48) Monocytes (%) (Auto) 9 % (0-9) Eosinophils (%) (Auto) 1 % (0-3) Basophils (%) (Auto) 1 % (0-3) Neutrophils # (Auto) 3.4 x10^3uL (1.8-7.7) Lymphocytes # (Auto) 1.8 x10^3/uL (1.0-4.8) Monocytes # (Auto) 0.5 x10^3/uL (0.0-1.1) Eosinophils # (Auto) 0.1 x10^3/uL (0.0-0.7) Basophils # (Auto) 0.0 x10^3/uL (0.0-0.2) Sodium Level 143 mmol/L (136-145) Potassium Level 4.0 mmol/L (3.5-5.1) Chloride Level 107 mmol/L (98-107) Carbon Dioxide Level 29 mmol/L (21-32) Anion Gap 7 (6-14) Blood Urea Nitrogen 11 mg/dL (7-20) Creatinine 1.0 mg/dL (0.6-1.0) Estimated GFR (Cockcroft-Gault) 64.7 BUN/Creatinine Ratio 11 (6-20) Glucose Level 122 mg/dL (70-99) H Calcium Level 9.1 mg/dL (8.5-10.1) Total Bilirubin 0.3 mg/dL (0.2-1.0) Aspartate Amino Transferase (AST) 26 U/L (15-37) Alanine Aminotransferase (ALT) 19 U/L (14-59) Alkaline Phosphatase 74 U/L (46-116) Creatine Kinase 154 U/L (26-192) Creatine Kinase MB (Mass) 1.4 ng/mL (0.0-3.6) Creatine Kinase MB Relative Index 0.9 % (0-4) Troponin I Quantitative 0.267 ng/mL (0.000-0.055) Total Protein 7.4 g/dL (6.4-8.2) Albumin 3.1 g/dL (3.4-5.0) L Albumin/Globulin Ratio 0.7 (1.0-1.7) L Laboratory Tests 01/06/17 12:47 Laboratory Tests 01/06/17 12:47 EKG EKG EKKNormal sinus rhythm, no acute ST-T wave changes.]KK Radiology/Procedures Radiology/Procedures [Chest x-ray: No acute cardiopulmonary disease] Course & Med Decision Making Course & Med Decision Making Pertinent Labs and Imaging studies reviewed. (See chart for details) [Patient noted to have elevated and troponin with recent stent placement. No acute EKG findings, patient denies symptoms in the emergency department. Case reviewed with cardiology services. Will admit to the hospital service with cardiology consult.] Dragon Disclaimer Dragon Disclaimer This electronic medical record was generated, in whole or in part, using a voice recognition dictation system. BASILIA HERNANDEZ DO Jan 06, 2017 18:33
[2017-01-06 19:00] VITALS: BP 100/59
[2017-01-06] MEDS: METOPROLOL TART IMMED RELEASE 25 MG TABLET. PO SCH (20:30)
[2017-01-06] MEDS ORDERED: ATORVASTATIN CALCIUM 20 MG TABLET PO SCH (21:00)
[2017-01-06] MEDS ORDERED: TICAGRELOR 90 MG TABLET. PO SCH (21:00)
[2017-01-06] MEDS ORDERED: FAMOTIDINE 20 MG TABLET. PO SCH (21:00)
[2017-01-06 22:58] VITALS: BP 113/57
[2017-01-07 05:03] LABS: BASO % 1 % (0-3); EOS % 4 % (0-3); HEMATOCRIT 32.7 % (36.0-47.0); HEMOGLOBIN 10.6 g/dL (12.0-15.5); LYMPH % 45 % (24-48); MEAN CORPUSCULAR HEMOGLOBIN 29 pg (25-35); MEAN CORPUSCULAR HGB CONC 33 g/dL (31-37); MEAN CORPUSCULAR VOLUME 90 fL (79-100); MONO % 12 % (0-9); NEUT % 39 % (31-73); PLATELET COUNT 219 x10^3/uL (140-400); RED BLOOD COUNT 3.63 x10^6/uL (3.50-5.40); RED CELL DISTRIBUTION WIDTH 15.3 % (11.5-14.5); WHITE BLOOD COUNT 4.5 x10^3/uL (4.0-11.0)
[2017-01-07 05:17] LABS: CALCIUM 8.4 mg/dL (8.5-10.1); CREATININE 0.8 mg/dL (0.6-1.0); GFR 83.7; POTASSIUM 3.9 mmol/L (3.5-5.1)
[2017-01-07 07:00] VITALS: BP 110/61
[2017-01-07] MEDS ORDERED: PANTOPRAZOLE 40 MG TABLET.DR. PO SCH (07:30)
[2017-01-07] MEDS: SUCRALFATE 1 GM TABLET. PO SCH ×2 (07:46→16:44)
[2017-01-07] MEDS ORDERED: VENLAFAXINE XR 37.5 MG CAP.ER.24H. PO SCH (09:00)
[2017-01-07] MEDS: ASPIRIN CHEWABLE 81 MG TABLET. PO SCH (09:09)
[2017-01-07] MEDS: amLODIPine BESYLATE 10 MG TABLET PO SCH (09:10)
[2017-01-07] MEDS: CLOPIDOGREL BISULFATE 75 MG TABLET PO SCH (09:10)
[2017-01-07] MEDS: FAMOTIDINE 20 MG TABLET. PO SCH (09:11)
[2017-01-07] MEDS: BENZONATATE 100 MG CAPSULE. PO SCH ×2 (09:12→13:35)
[2017-01-07 10:38] VITALS: BP 113/54
--- NOTE | 2017-01-07 11:55 | PDOC ---
Subjective: Subjective: No recurrence of pain since admission. Slept well, tolerating PO. Objective: Vital Signs: Vital Signs Date Time Temp Pulse Resp B/P (MAP) Pulse Ox O2 Delivery O2 Flow Rate FiO2 01/07/17 10:38 97.6 56 17 113/54 (73) 99 Room Air 97.6 Labs: Laboratory Tests Test 01/06/17 12:47 01/06/17 20:30 01/07/17 03:30 White Blood Count 5.8 x10^3/uL 4.5 x10^3/uL Red Blood Count 3.98 x10^6/uL 3.63 x10^6/uL Hemoglobin 11.5 g/dL 10.6 g/dL Hematocrit 35.7 % 32.7 % Mean Corpuscular Volume 90 fL 90 fL Mean Corpuscular Hemoglobin 29 pg 29 pg Mean Corpuscular Hemoglobin Concent 32 g/dL 33 g/dL Red Cell Distribution Width 15.0 % 15.3 % Platelet Count 248 x10^3/uL 219 x10^3/uL Neutrophils (%) (Auto) 58 % 39 % Lymphocytes (%) (Auto) 30 % 45 % Monocytes (%) (Auto) 9 % 12 % Eosinophils (%) (Auto) 1 % 4 % Basophils (%) (Auto) 1 % 1 % Neutrophils # (Auto) 3.4 x10^3uL 1.8 x10^3uL Lymphocytes # (Auto) 1.8 x10^3/uL 2.0 x10^3/uL Monocytes # (Auto) 0.5 x10^3/uL 0.5 x10^3/uL Eosinophils # (Auto) 0.1 x10^3/uL 0.2 x10^3/uL Basophils # (Auto) 0.0 x10^3/uL 0.0 x10^3/uL Sodium Level 143 mmol/L 146 mmol/L Potassium Level 4.0 mmol/L 3.9 mmol/L Chloride Level 107 mmol/L 108 mmol/L Carbon Dioxide Level 29 mmol/L 28 mmol/L Anion Gap 7 10 Blood Urea Nitrogen 11 mg/dL 10 mg/dL Creatinine 1.0 mg/dL 0.8 mg/dL Estimated GFR (Cockcroft-Gault) 64.7 83.7 BUN/Creatinine Ratio 11 Glucose Level 122 mg/dL 98 mg/dL Calcium Level 9.1 mg/dL 8.4 mg/dL Total Bilirubin 0.3 mg/dL Aspartate Amino Transf (AST/SGOT) 26 U/L Alanine Aminotransferase (ALT/SGPT) 19 U/L Alkaline Phosphatase 74 U/L Creatine Kinase 154 U/L Creatine Kinase MB (Mass) 1.4 ng/mL Creatine Kinase MB Relative Index 0.9 % Troponin I Quantitative 0.267 ng/mL 0.246 ng/mL 0.207 ng/mL Total Protein 7.4 g/dL Albumin 3.1 g/dL Albumin/Globulin Ratio 0.7 PE: GEN: NAD, up to chair eating lunch ABD: non-tender NEURO/PSYCH: A & O 3 A/P: Chest pain, CAD, GERD -burning, radiation to arms, occurs during the night -heart cath <1 week ago w/ triple vessel disease, 1 stent placed -EGD 01/2016 w/ reflux, recently restarted PPI -- Note DC plans today, okay per GI. D/w cardiology - plans to follow-up as outpt. Continue PPI QD. ALISE QUIROZ Jan 07, 2017 11:55
--- NOTE | 2017-01-07 12:20 | PDOC ---
CARDIO Progress Notes Date and Time Date of Service 01/07/17 Time of Evaluation 1200 Subjective Subjective: No Chest Pain, No shortness of breath, No Palpitations, No Dizziness Vitals Vitals Vital Signs Date Time Temp Pulse Resp B/P (MAP) Pulse Ox O2 Delivery O2 Flow Rate FiO2 01/07/17 10:38 97.6 56 17 113/54 (73) 99 Room Air 97.6 Weight Weight [ ] Input and Output Intake and Output Intake and Output 01/07/17 06:59 Intake Total 240 ml Balance 240 ml Intake Oral 240 ml # Voids 3 Laboratory Labs Laboratory Tests Test 01/06/17 12:47 01/06/17 20:30 01/07/17 03:30 White Blood Count 5.8 x10^3/uL (4.0-11.0) 4.5 x10^3/uL (4.0-11.0) Red Blood Count 3.98 x10^6/uL (3.50-5.40) 3.63 x10^6/uL (3.50-5.40) Hemoglobin 11.5 g/dL (12.0-15.5) 10.6 g/dL (12.0-15.5) Hematocrit 35.7 % (36.0-47.0) 32.7 % (36.0-47.0) Mean Corpuscular Volume 90 fL (79-100) 90 fL (79-100) Mean Corpuscular Hemoglobin 29 pg (25-35) 29 pg (25-35) Mean Corpuscular Hemoglobin Concent 32 g/dL (31-37) 33 g/dL (31-37) Red Cell Distribution Width 15.0 % (11.5-14.5) 15.3 % (11.5-14.5) Platelet Count 248 x10^3/uL (140-400) 219 x10^3/uL (140-400) Neutrophils (%) (Auto) 58 % (31-73) 39 % (31-73) Lymphocytes (%) (Auto) 30 % (24-48) 45 % (24-48) Monocytes (%) (Auto) 9 % (0-9) 12 % (0-9) Eosinophils (%) (Auto) 1 % (0-3) 4 % (0-3) Basophils (%) (Auto) 1 % (0-3) 1 % (0-3) Neutrophils # (Auto) 3.4 x10^3uL (1.8-7.7) 1.8 x10^3uL (1.8-7.7) Lymphocytes # (Auto) 1.8 x10^3/uL (1.0-4.8) 2.0 x10^3/uL (1.0-4.8) Monocytes # (Auto) 0.5 x10^3/uL (0.0-1.1) 0.5 x10^3/uL (0.0-1.1) Eosinophils # (Auto) 0.1 x10^3/uL (0.0-0.7) 0.2 x10^3/uL (0.0-0.7) Basophils # (Auto) 0.0 x10^3/uL (0.0-0.2) 0.0 x10^3/uL (0.0-0.2) Sodium Level 143 mmol/L (136-145) 146 mmol/L (136-145) Potassium Level 4.0 mmol/L (3.5-5.1) 3.9 mmol/L (3.5-5.1) Chloride Level 107 mmol/L (98-107) 108 mmol/L (98-107) Carbon Dioxide Level 29 mmol/L (21-32) 28 mmol/L (21-32) Anion Gap 7 (6-14) 10 (6-14) Blood Urea Nitrogen 11 mg/dL (7-20) 10 mg/dL (7-20) Creatinine 1.0 mg/dL (0.6-1.0) 0.8 mg/dL (0.6-1.0) Estimated GFR (Cockcroft-Gault) 64.7 83.7 BUN/Creatinine Ratio 11 (6-20) Glucose Level 122 mg/dL (70-99) 98 mg/dL (70-99) Calcium Level 9.1 mg/dL (8.5-10.1) 8.4 mg/dL (8.5-10.1) Total Bilirubin 0.3 mg/dL (0.2-1.0) Aspartate Amino Transf (AST/SGOT) 26 U/L (15-37) Alanine Aminotransferase (ALT/SGPT) 19 U/L (14-59) Alkaline Phosphatase 74 U/L (46-116) Creatine Kinase 154 U/L (26-192) Creatine Kinase MB (Mass) 1.4 ng/mL (0.0-3.6) Creatine Kinase MB Relative Index 0.9 % (0-4) Troponin I Quantitative 0.267 ng/mL (0.000-0.055) 0.246 ng/mL (0.000-0.055) 0.207 ng/mL (0.000-0.055) Total Protein 7.4 g/dL (6.4-8.2) Albumin 3.1 g/dL (3.4-5.0) Albumin/Globulin Ratio 0.7 (1.0-1.7) Physical Exam HEENT: Neck Supple W Full Motion Chest: Symmetric LUNGS: Clear to Auscultation Heart: S1S2, RRR, murmurs (2/6 systolic murmur ) Abdomen: Soft N/T Extremities: 2+ Dorsalis Pedis, No Edema Neurology: alert, oriented, follow commands Assessment Assessment 1. Chest pain, atypical 2. NSTEMI; troponin likely trending down post cath (01/03/17) 3. 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 HTN 5. Dyslipidemia 6. Tachy-aarti 7. GERD 8. Anxiety Recommendations Having periods of atrial tachycardia. Continue metoprolol at current dose as she is also have intermittent bradycardia. Will place event monitor prior to discharge to evaluate need for PPM implantation Continue secondary prevention including DAPT with ASA and Plavix Management of anxiety per PCP. Patient to f/u in our office in 4 weeks following 3 weeks of event monitor. GAY WILLIS APRN Jan 07, 2017 12:20
--- NOTE | 2017-01-07 13:26 | PDOC3 ---
Discharge Summary [facility] Date of Admission: Jan 06, 2017 Discharge Date: Jan 07, 2017 Admitting Diagnosis chest pain, 2/2 GERD recent CAD with 1 stent htn, HLD GERD obesity mild malnutrition elevated troponin from recent [place] Problems: Final Diagnosis CONSULTS card gi Brief Hospital Course Ms. Vivar is a 81 old F, who just got 1 stent 2 days ago, comes for chest pain. She said she feels it is acid reflux, now no chest pain or abd pain. recently started with sulcrafate and protonix. cont the meds. high troponin, neg Ckmb. dc home , no further intervention. dc time 35min General: Alert, Oriented X3, Cooperative, No acute distress HEENT: Atraumatic, PERRLA, EOMI, Mucous membr. moist/pink Lungs: Normal air movement Abdomen: No tenderness Extremities: No edema Skin: No significant lesion Neuro: Normal tone, Cranial nerves 3-12 NL Psych/Mental Status: Mood NL Patient History: Patient reports no known family medical history. Problems: Disposition HOME CONDITION AT DISCHARGE: Improved, Stable Diet cardiac Scheduled Amlodipine Besylate (Norvasc), 10 MG PO DAILY Benzonatate (Tessalon Perle), 1 CAP PO TID Clopidogrel Bisulfate (Clopidogrel), 75 MG PO DAILY, (Reported) Doxycycline Hyclate (Doxycycline Hyclate), 1 TAB PO BID Famotidine (Pepcid), 20 MG PO BID Metoprolol Tartrate (Metoprolol Tartrate), 0.5 TAB PO BID Pantoprazole Sodium (Protonix), 1 TAB PO DAILY Ticagrelor (Brilinta), 90 MG PO BID Venlafaxine Hcl (Effexor Xr), 37.5 MG PO DAILY, (Reported) Scheduled PRN Albuterol Sulfate (Proair Respiclick), 1 PUFF IH PRN Q6HRS PRN for SHORTNESS OF BREATH Diazepam (Valium), 5 MG PO Q8HRS PRN for ANXIETY / AGITATION Miscellaneous Medications Aspirin (Aspirin), 81 MG PO, (Reported) Gluc Hcl/Csa/Cassia Hy/Hyalur Ac (Glucosamine Chondroitin Cap), 1 EACH PO, ( Reported) Multivitamin (Multivitamins), 1 EACH PO, (Reported) Nahma-3 Fatty Acids (Fish Oil), 300 MG PO, (Reported) Sucralfate (Sucralfate), 1 GM PO, (Reported) Discontinued Medications Albuterol Sulfate (Proair Hfa Inhaler), 8.5 GM IH, (Reported) Discontinued Reason: D/C'd Fluticasone Propionate (Flonase), 16 GM NS, (Reported) Discontinued Reason: D/C'd Lisinopril (Lisinopril), 1 TAB PO DAILY Follow Up pcp, card in 2 weeks TRISTON OBRIEN MD Jan 07, 2017 13:26
[2017-01-07] MEDS ORDERED: ATOR20TA58 PO (13:29)
[2017-01-07] MEDS: METOPROLOL TART IMMED RELEASE 25 MG TABLET. PO SCH (13:36)
[2017-01-07 14:53] VITALS: BP 148/68
== END 2017-01-07 17:30 | disposition home or self-care (01) ==
LOC: ER 12:12 → 5 SOUTH 14:00
PROVIDERS: ADMIT Internal Medicine; ATTEND Internal Medicine
DX: R07.89 Other chest pain (principal); I25.10 Atherosclerotic heart disease of native coronary artery without angina pectoris; I10 Essential (primary) hypertension; E78.5 Hyperlipidemia, unspecified; E66.9 Obesity, unspecified; I25.2 Old myocardial infarction; K21.9 Gastro-esophageal reflux disease without esophagitis; R79.89 Other specified abnormal findings of blood chemistry; E44.1 Mild protein-calorie malnutrition; I49.5 Sick sinus syndrome; F41.9 Anxiety disorder, unspecified; M79.7 Fibromyalgia; M19.90 Unspecified osteoarthritis, unspecified site; Z87.442 Personal history of urinary calculi; Z95.5 Presence of coronary angioplasty implant and graft; Z82.49 Family history of ischemic heart disease and other diseases of the circulatory system; Z83.3 Family history of diabetes mellitus
CPT/HCPCS: 36415; 71010; 80048; 80053; 82553; 84484; 85027; 93005; 96360; 96361; 99285; G0378; J7042; G0379

== ENCOUNTER → 2017-09-09 | Outpatient (CLI) | payer MEDICARE, BC | END | disposition home or self-care (01) | LOC: KCIC 10:25 | DX: M25.551 Pain in right hip (principal) | CPT/HCPCS: 73502 ==

== ENCOUNTER → 2018-04-02 | Outpatient (CLI) | payer MEDICARE, BC ==
[2017-11-24 23:30] VITALS: BP 100/57
[~2018-04-02] MED LIST changes: +ATOR20TA58 PO; +CLOP75TA PO; +GLUC1CAP18 PO; +LISI-130 PO; -LISI40TA PO; +METO-239 PO; +MULT1TAB52 PO; +OMEG1CAP27 PO; +SUCR1TAB PO; +SUCR1TAB35 PO
--- NOTE | 2018-04-02 11:10 | CARD ---
MR#: [id number] Date of Study: 04/02/2018 Ordering Physician: HAMZAH AGGARWAL, Referring Physician: HAMZAH AGGARWAL, Tech: Na Gan [facility] APPROVED REPORT EXAM: Two-dimensional and M-mode echocardiogram with Doppler and color Doppler. Other Information Quality : AverageGoodHR: 55bpm Rhythm : NSR INDICATION Cardiac Disease: CAD 2D DIMENSIONS Left Atrium(2D)3.9 (1.6-4.0cm)IVSd0.8 (0.7-1.1cm) Aortic Root(2D)2.3 (2.0-3.7cm)LVDd4.5 (3.9-5.9cm) LVOT Diameter1.8 (1.8-2.4cm)PWd0.7 (0.7-1.1cm) LVDs2.8 (2.5-4.0cm)FS (%) 36.2 % SV59.6 mlLVEF(%)66.1 (>50%) M-Mode DIMENSIONS Left Atrium(MM)3.61 (2.5-4.0cm)Aortic Root2.96 (2.2-3.7cm) Aortic Valve AoV Peak Paco.158.6cm/sAoV VTI37.7cm AO Peak GR.10.1mmHgLVOT Peak Paco.106.4cm/s AO Mean GR.5mmHgAVA (VMAX)1.64cm2 SLOAN (VTI)1.50cm2 Mitral Valve MV E Ppyyefoq737.7cm/sMV E Peak Gr.3mmHg MV DECEL [id number] A Rytsuwuu64.3cm/s MV E Mean Gr.1mmHgE/A Ratio1.5 MV A [id number] Pulmonary Valve PV Peak Oadyjmfz15.5cm/s Tricuspid Valve TR P. [id number] [id number] TR Peak Gr.92nmHfWWAH64cxAa Pulmonary Vein S1 Blqfpbry87.9cm/sD2 Paphqhet57.4cm/s PVa [id number] LEFT VENTRICLE The left ventricle is normal size. There is normal left ventricular wall thickness. The left ventricu lar systolic function is normal and the ejection fraction is within normal range. The Ejection Fracti on is 60-65%. There is normal LV segmental wall motion. The left ventricular diastolic function and f illing is normal for age. RIGHT VENTRICLE The right ventricle is normal size. There is normal right ventricular wall thickness. The right ventr icular systolic function is normal. ATRIA The left atrium is mildly dilated. The right atrium size is normal. The interatrial septum is intact with no evidence for an atrial septal defect or patent foramen ovale as noted on 2-D or Doppler imagi ng. AORTIC VALVE The aortic valve is thickened but opens well. Doppler and Color Flow revealed no significant aortic r egurgitation. There is no significant aortic valvular stenosis. MITRAL VALVE The mitral valve is thickened but opens well. There is no evidence of mitral valve prolapse. There is no mitral valve stenosis. Doppler and Color-flow revealed mild mitral regurgitation. TRICUSPID VALVE The tricuspid valve is normal in structure and function. Doppler and Color Flow revealed mild tricusp id regurgitation. The PA pressure was estimated at 38 mmHg. There is mild pulmonary hypertension. The re is no tricuspid valve prolapse or vegetation. There is no tricuspid valve stenosis. PULMONIC VALVE Doppler and Color Flow revealed trace pulmonic valvular regurgitation. There is no pulmonic valvular stenosis. GREAT VESSELS The aortic root is normal in size. The ascending aorta is normal in size. The IVC is normal in size a nd collapses >50% with inspiration. PERICARDIAL EFFUSION There is no evidence of significant pericardial effusion. Critical Notification Critical Value: No <Conclusion> The left ventricular systolic function is normal and the ejection fraction is within normal range. Th e Ejection Fraction is 60-65%. There is normal LV segmental wall motion. Signed by : Hamzah Aggarwal, Electronically Approved : 04/02/2018 11:09:09
== END | disposition home or self-care (01) ==
LOC: ECHO 09:26
PROVIDERS: ATTEND Internal Medicine Cardiovascular Disease
DX: I08.1 Rheumatic disorders of both mitral and tricuspid valves (principal); I27.20 Pulmonary hypertension, unspecified; K21.9 Gastro-esophageal reflux disease without esophagitis; Z79.899 Other long term (current) drug therapy; Z88.8 Allergy status to other drugs, medicaments and biological substances
CPT/HCPCS: 93306